=== PATIENT | female | born 1950 | race Caucasian/White ===

== ENCOUNTER 2016-09-17 13:16 | Outpatient (CLI) | payer OTHER ==
--- NOTE | 2016-09-17 15:01 | DIAGNOSTIC IMAGING REPORT ---
PROCEDURE: DEXA BONE DENSITY STUDY CLINICAL INDICATION: PREVENTIVE HEALTH COMPARISON: None. FINDINGS: LUMBAR SPINE: Bone mineral density 0.855, T-score -1.7, osteopenia LEFT HIP: Bone mineral density 0.829, T-score -0.9, normal LEFT FEMORAL NECK: Bone mineral density 0.670, T-score -1.6, osteopenia. (T score greater or equal to -1.0 to: NORMAL) (T score from -1.1 to -2.4: OSTEOPENIA) (T score ess than or equal to -2.5: OSTEOPOROSIS) IMPRESSION: 1. Lumbar spine and left hip osteopenia. 2. 10-year fracture risk: Major osteoporotic fracture 12%, hip fracture 2.9%.
--- NOTE | 2016-09-17 16:59 | DIAGNOSTIC IMAGING REPORT ---
PROCEDURE: MG BILATERAL SCREENING W/CAD INDICATION: New baseline screening TECHNIQUE: Standard CC and MLO views bilaterally. Computer aided detection was used. COMPARISON: None. FINDINGS: Minimally dense fibrofatty breast tissue is present bilaterally. No unusual densities or areas of architectural distortion. There is an extremely tiny, 2 mm cluster of microcalcifications in the anterior medial right breast seen on the CC view only. IMPRESSION: 1. Minuscule cluster of microcalcifications in the anterior medial right breast for which further evaluation with spot magnification views is recommended. 2. The patient will be contacted. RESULT CODE: 0- Incomplete; needs additional evaluation. A. A negative report should not delay biopsy if a dominant or clinically suspicious mass is present. 10-15% of cancers are not identified by x-ray. B. A negative report may reinforce clinical impression. C. Adenosis and dense breasts may obscure an underlying neoplasm. D. False positive reports average 6-10%. E.. A yearly screening mammogram is recommended. A reminder letter will be scheduled.
== END 2016-09-17 23:00 ==
LOC: MAM SRH 13:16
DX: Z13.89 Encounter for screening for other disorder (principal); Z12.31 Encounter for screening mammogram for malignant neoplasm of breast; M85.89 Other specified disorders of bone density and structure, multiple sites

== ENCOUNTER 2016-09-21 10:46 | Outpatient (CLI) | payer OTHER ==
--- NOTE | 2016-09-21 13:12 | DIAGNOSTIC IMAGING REPORT ---
PROCEDURE: CT IVP CLINICAL INDICATION: HEMATURIA TECHNIQUE: Preliminary AP and lateral seed sales manager views of the abdomen were obtained. Subsequently, noncontrast axial images were obtained of the entire abdomen and pelvis. 145 ml of Isovue 300 was injected intravenously, and axial images were obtained of the abdomen and pelvis with biphasic imaging of the liver and kidneys, followed by sagittal and coronal reformations. Postinjection AP seed sales manager view of the abdomen was also obtained. COMPARISON: None. FINDINGS: NONCONTRAST ABDOMEN: No urinary calculi. CONTRAST ABDOMEN: Lung base are clear. Heart size is normal. Left renal upper pole scar. Normal enhancement and excretion without evidence of a mass or obstruction. Normal ureters. Enlarged gallbladder. Liver, pancreas and adrenal glands are normal. Small irregular shaped spleen. Moderate atherosclerosis of the aorta. Small hiatal hernia. Nonspecific bowel gas pattern. There are two midline supraumbilical fat-containing ventral hernias measuring 3.5 and 2 cm. NONCONTRAST PELVIS: No bladder calculi. CONTRAST PELVIS: Normal bladder. Appendix not visualized but no evidence of acute appendicitis. Minor sigmoid diverticulosis. Normal uterus and adnexa. Mild to moderate levoconvex scoliosis with moderate degenerative changes. IMPRESSION: 1. Left renal upper pole scar. 2. Enlarged gallbladder. Correlate clinically. 3. Hiatal hernia 4. Minor sigmoid diverticulosis 5. Two supraumbilical fat-containing midline ventral hernias All CT scans at this facility use dose modulation, iterative reconstruction, and/or weight-based dosing when appropriate to reduce radiation dose to as low as reasonably achievable.
--- NOTE | 2016-09-21 13:12 | DIAGNOSTIC IMAGING REPORT ---
PROCEDURE: CT IVP CLINICAL INDICATION: HEMATURIA TECHNIQUE: Preliminary AP and lateral band tacker views of the abdomen were obtained. Subsequently, noncontrast axial images were obtained of the entire abdomen and pelvis. 145 ml of Isovue 300 was injected intravenously, and axial images were obtained of the abdomen and pelvis with biphasic imaging of the liver and kidneys, followed by sagittal and coronal reformations. Postinjection AP band tacker view of the abdomen was also obtained. COMPARISON: None. FINDINGS: NONCONTRAST ABDOMEN: No urinary calculi. CONTRAST ABDOMEN: Lung base are clear. Heart size is normal. Left renal upper pole scar. Normal enhancement and excretion without evidence of a mass or obstruction. Normal ureters. Enlarged gallbladder. Liver, pancreas and adrenal glands are normal. Small irregular shaped spleen. Moderate atherosclerosis of the aorta. Small hiatal hernia. Nonspecific bowel gas pattern. There are two midline supraumbilical fat-containing ventral hernias measuring 3.5 and 2 cm. NONCONTRAST PELVIS: No bladder calculi. CONTRAST PELVIS: Normal bladder. Appendix not visualized but no evidence of acute appendicitis. Minor sigmoid diverticulosis. Normal uterus and adnexa. Mild to moderate levoconvex scoliosis with moderate degenerative changes. IMPRESSION: 1. Left renal upper pole scar. 2. Enlarged gallbladder. Correlate clinically. 3. Hiatal hernia 4. Minor sigmoid diverticulosis 5. Two supraumbilical fat-containing midline ventral hernias All CT scans at this facility use dose modulation, iterative reconstruction, and/or weight-based dosing when appropriate to reduce radiation dose to as low as reasonably achievable.
--- NOTE | 2016-09-21 17:28 | DIAGNOSTIC IMAGING REPORT ---
PROCEDURE: MG UNILATERAL DIAG-RT W/CAD INDICATION: MICROCALCIFICATIONS TECHNIQUE: Spot compression magnification views of the inferomedial anterior right breast in the CC, MLO, and MLO projections. Direct lateral right mammogram performed. COMPARISON: 09/17/2016 FINDINGS: Mammograms: With focal magnification, the calcifications in question, in the four to five o'clock position in the anterior right breast, appear somewhat coarse and amorphous. There are tightly clustered without a definite underlying density. Ultrasound: Deferred. IMPRESSION: 1. Tight cluster of microcalcifications in the four to five o'clock position of the anterior right breast appears primarily dystrophic, probably benign. 2. 6-month follow-up right breast mammogram with magnification views is recommended. Findings and recommendations were discussed with the patient. RESULT CODE: 3- Probably benign. A. A negative report should not delay biopsy if a dominant or clinically suspicious mass is present. 10-15% of cancers are not identified by x-ray. B. A negative report may reinforce clinical impression. C. Adenosis and dense breasts may obscure an underlying neoplasm. D. False positive reports average 6-10%. E.. A yearly screening mammogram is recommended. A reminder letter will be scheduled.
== END 2016-09-21 23:00 ==
LOC: MAM SRH 10:46 → CT SRH 12:00 → MAM SRH 23:00
DX: R92.0 Mammographic microcalcification found on diagnostic imaging of breast (principal); R31.9 Hematuria, unspecified; K82.8 Other specified diseases of gallbladder; K44.9 Diaphragmatic hernia without obstruction or gangrene; K43.9 Ventral hernia without obstruction or gangrene; K57.30 Diverticulosis of large intestine without perforation or abscess without bleeding